=== PATIENT | male | born 1970 | race Caucasian/White ===

== ENCOUNTER 2017-01-02 19:13 | Emergency (ER) | payer OTHER ==
[~2017-01-02] VITALS: Ht 182.9 cm; Wt 1002.0 kg
[~2017-01-02 19:13] MED LIST: FLEXERIL5 MG PO; MOTRIN800 MG PO
[2017-01-02 20:29] LABS: HEMATOCRIT 48.6 % (38.0-50.0); MCH 30.1 PG (29.0-34.0); MCHC 33.5 G/DL (30.0-36.0); MCV 89.8 FL (86-99); MEAN PLAT.VOLUME 10.1 uM^3 (9.0-12.4); PLATELET COUNT 227 K/uL (156-360); RBC DIS.WIDTH-CV 12.8 % (11.8-14.6); RBC DIS.WIDTH-SD 42.1 % (39-53); RED BLOOD COUNT 5.41 M/uL (4.00-5.50); WHITE BLOOD COUNT 10.5 K/uL (4.1-10.2)
[2017-01-02 20:42] LABS: CHLORIDE 105 mEq/L (99-109); POTASSIUM 4.1 mEq/L (3.7-5.4); SODIUM 143 mEq/L (136-147)
[2017-01-02 20:43] LABS: GLUCOSE 82 mg/dL (70-99)
[2017-01-02 20:45] LABS: ANION GAP 11 MEQ/L (2-14)
[2017-01-02 20:47] LABS: GFR ESTIMATE (CALCULATED) > 59 mL/min/
[2017-01-02 20:48] LABS: UREA NITROGEN (BUN) 16 mg/dL (9-23)
[2017-01-02 20:51] LABS: TROP-I INTERPRETATION NEGATIVE; TROPONIN-I < 0.01 ng/mL (0.0-0.30)
[2017-01-02] MEDS ORDERED: NAPROXEN500 MG PO (21:02)
[2017-01-02] MEDS ORDERED: ATORVASTATIN CA20 MG PO (21:32)
[2017-01-02 21:34] VITALS: BP 131/80
== END 2017-01-02 21:35 | disposition home or self-care (01) ==
LOC: EME 19:13
DX: R07.89 Other chest pain (principal); E78.5 Hyperlipidemia, unspecified; F17.200 Nicotine dependence, unspecified, uncomplicated
CPT/HCPCS: 71020; 80048; 84484; 85027; 93005; 99281; 99284

== ENCOUNTER 2017-10-18 07:37 | Emergency (ER) | payer OTHER ==
[~2017-10-18] VITALS: Ht 182.9 cm; Wt 102.2 kg
[~2017-10-18 07:37] MED LIST changes: +ATORVASTATIN CA20 MG PO; +NAPROXEN500 MG PO
[2017-10-18 08:14] LABS: HEMOGLOBIN 16.2 G/DL (12.5-16.6); MCH 31.1 PG (29.0-34.0); MCHC 34.5 G/DL (30.0-36.0); MCV 90.2 FL (86-99); PLATELET COUNT 214 K/uL (156-360); RBC DIS.WIDTH-CV 13.1 % (11.8-14.6); RBC DIS.WIDTH-SD 42.8 % (39-53); RED BLOOD COUNT 5.21 M/uL (4.00-5.50); WHITE BLOOD COUNT 8.7 K/uL (4.1-10.2)
[2017-10-18 08:25] LABS: ALBUMIN 4.4 g/dL (3.2-4.8); CHLORIDE 104 mEq/L (99-109); POTASSIUM 4.6 mEq/L (3.7-5.4); SODIUM 142 mEq/L (136-147)
[2017-10-18 08:28] LABS: GLUCOSE 112 mg/dL (70-99); TOTAL PROTEIN 7.7 g/dL (6.4-8.3)
[2017-10-18 08:30] LABS: TOTAL BILIRUBIN 0.6 mg/dL (0.0-1.0)
[2017-10-18 08:31] LABS: ALKALINE PHOSPHATASE 57 IU/L (3-129); GFR ESTIMATE (CALCULATED) > 59 mL/min/ (58.99-99999)
[2017-10-18 08:32] LABS: UREA NITROGEN (BUN) 15 mg/dL (9-23)
[2017-10-18 08:33] LABS: AST (GOT) 26 IU/L (2-34)
[2017-10-18 08:34] LABS: ALT (GPT) 34 IU/L (3-49)
[2017-10-18 08:35] LABS: LIPASE 53 U/L (1.0-51.0)
[2017-10-18 09:34] LABS: APPEARANCE CLEAR ((CLEAR)); BILIRUBIN NEGATIVE; BLOOD LARGE; COLOR STRAW ((YELLOW)); GLUCOSE (STRIP) NEGATIVE; KETONES NEGATIVE; LEUKOCYTES NEGATIVE; NITRITE NEGATIVE; PROTEIN (STRIP) NEGATIVE; UROBILINOGEN 0.2 MG/DL (0.2-1.0)
[2017-10-18 09:35] LABS: SPECIFIC GRAVITY > 1.060 (1.000-1.030)
[2017-10-18 09:37] LABS: BACTERIA NONE SEEN /HPF; EPITHELIAL CELLS RARE /HPF; MUCUS NONE SEEN /LPF; RED BLOOD CELLS 40-50 /HPF (0-5); WHITE BLOOD CELLS 0-5 /HPF (0-5)
[2017-10-18] MEDS ORDERED: PERCOCET 5/31 TABLET PO (11:26)
[2017-10-18] MEDS ORDERED: NAPROSYN500 MG PO (11:26)
[2017-10-18] MEDS ORDERED: ZOFRAN ODT4 MG PO (11:26)
[2017-10-18 11:52] VITALS: BP 145/97
== END 2017-10-18 11:54 | disposition home or self-care (01) ==
LOC: EME 07:37
PROVIDERS: Nurse Practitioner Family
DX: N13.2 Hydronephrosis with renal and ureteral calculous obstruction (principal); E78.5 Hyperlipidemia, unspecified; F17.200 Nicotine dependence, unspecified, uncomplicated
CPT/HCPCS: 74177; 80053; 81003; 83690; 85027; 99281; 99284